=== PATIENT | female | born 1985 | race Caucasian/White ===

== ENCOUNTER → 2018-08-06 | Outpatient (CLI) | payer BC ==
--- NOTE | 2018-08-06 15:11 | US ---
EXAMINATION TYPE: US transvaginal DATE OF EXAM: 08/06/2018 COMPARISON: NONE CLINICAL HISTORY: R10.2 Pelvic and perineal pain. TECHNIQUE: Transvaginal (TV). Date of LMP: 08/03/2018 EXAM MEASUREMENTS: Uterus: 8.8 x 7.6 x 4.9 cm Endometrial Stripe: 0.8 cm Right Ovary: 3.0 x 2.6 x 2.0 cm Left Ovary: 3.2 x 2.3 x 2.2 cm 1. Uterus: Anteverted heterogeneous texture. 2. Endometrium: wnl 3. Right Ovary: follicular cyst = 1.1 x 1.4 x 0.8 cm 4. Left Ovary: 2 follicular cysts noted. Largest is complex and measures 1.2 x 1.4 x 1.0 cm second follicular cyst = 0.9 cm 5. Bilateral Adnexa: wnl 6. Posterior cul-de-sac: wnl IMPRESSION: 1. Complex cyst left ovary. Follow-up following the next normal menstrual period or 6 weeks is recomm ended.
== END | disposition home or self-care (01) ==
LOC: RADUSWWP 14:06
PROVIDERS: ATTEND Family Medicine
DX: N83.292 Other ovarian cyst, left side (principal)
CPT/HCPCS: 76830

== ENCOUNTER → 2018-11-11 | Outpatient (CLI) | payer BC ==
--- NOTE | 2018-11-11 15:30 | US ---
EXAMINATION TYPE: US transvaginal DATE OF EXAM: 11/11/2018 COMPARISON: August 06, 2018 pelvic ultrasound CLINICAL HISTORY: N83.202 Left Ovarian Cyst. TECHNIQUE: Transvaginal (TV). Date of LMP: 10/22/2018 EXAM MEASUREMENTS: Uterus: 9.7 x 5.0 x 5.2 cm Endometrial Stripe: 1.1 cm Right Ovary: 1.8 x 1.3 x 1.6 cm Left Ovary: 1.7 x 1.5 x 1.4 cm cm 1. Uterus: Anteverted small nabothian cysts 0.6 x 0.5 x 0.6 cm, 0.6 x 0.4 x 0.3 cm 0.6 x 0.4 x 0.2 cm 2. Endometrium: wnl 3. Right Ovary: small cysts 0.7 x 0.4 x 0.7 cm, 0.7 x 0.6 x 0.5 cm 4. Left Ovary: wnl 5. Bilateral Adnexa: wnl 6. Posterior cul-de-sac: wnl Heterogeneous anteverted uterus is seen. Tiny nabothian cysts scattered throughout the cervix are ulises ntified on current study. Endometrium within normal limits for secretory phase of menstrual cycle. No free fluid in pelvic cul-de-sac. Both ovaries are identified somewhat small in size for patient's age. No suspicious adnexal lesions a re seen on current study. IMPRESSION: No suspicious ovarian or adnexal lesions on current study.
== END ==
LOC: RADUSWWP 14:44
PROVIDERS: ATTEND Family Medicine
DX: N83.202 Unspecified ovarian cyst, left side (principal)
CPT/HCPCS: 76830